=== PATIENT | male | born 1960 | race African-American/Black ===

== ENCOUNTER 2022-11-10 05:55 | Emergency (ER) | payer OTHER | END 2022-11-10 07:15 | disposition home or self-care (01) | LOC: CSHERS 05:55 | DX: J06.9 Acute upper respiratory infection, unspecified (principal); I10 Essential (primary) hypertension; Z79.899 Other long term (current) drug therapy | CPT/HCPCS: 99283 ==

== ENCOUNTER 2022-11-12 07:37 | Emergency (ER) | payer OTHER | END 2022-11-12 08:49 | disposition home or self-care (01) | LOC: CSHERS 07:37 | DX: R04.2 Hemoptysis (principal); I10 Essential (primary) hypertension; Z79.899 Other long term (current) drug therapy | CPT/HCPCS: 71045 ==

== ENCOUNTER 2023-04-10 08:42 | Emergency (ER) | payer OTHER ==
[2023-04-10 09:41] LABS: #Basophils 0.1 10x3/uL (0.0-0.2); #Monocytes 0.8 10x3/uL (0.0-1.1); %Basophils 0.8 % (0.0-2.0); %Eosinophils 0.3 % (0.0-6.0); %Lymphocytes 38.5 % (18.0-47.0); %Monocytes 12.1 % (0.0-10.0); %Neutrophils 48.1 % (40.0-75.0); Hematocrit 42.5 % (38.8-50.0); Mean Corpuscular HGB CONC 32.9 g/dL (32.0-36.0); Mean Corpuscular Hemoglobin 30.6 pg (27.0-33.0); Mean Platelet Volume 10.5 fl (7.4-10.4); Platelet Count 187 10x3/uL (150-450); RBC Distribution Width 13.4 % (11.5-14.5); Red Blood Cell (RBC) Count 4.57 10x6/uL (4.32-5.72); White Blood Cell (WBC) Count 6.3 10x3/uL (3.5-10.5)
[2023-04-10 09:57] LABS: ALT (SGPT) 26 U/L (8-55); AST (SGOT) 26 U/L (5-34); Albumin 4.2 g/dL (3.4-4.8); Alkaline Phosphatase 58 U/L (40-110); Anion Gap 13 mmol/L (10-20); BUN (Urea Nitrogen) 14 mg/dL (8.4-25.7); Bilirubin, Total 0.5 mg/dL (0.2-1.2); Calc. Creatinine Clearance 0 mL/min (70-130); Calcium 8.5 mg/dL (7.8-10.44); Carbon Dioxide 23 mmol/L (23-31); Chloride 105 mmol/L (98-107); Estimated GFR 56; Globulin 2.9 g/dL (2.4-3.5); Glucose 103 mg/dL (80-115); Potassium 4.1 mmol/L (3.5-5.1); Protein, Total 7.1 g/dL (5.8-8.1); Sodium 137 mmol/L (136-145)
[2023-04-10 10:01] LABS: Troponin I Less than 0.010 ng/mL (< 0.028)
[2023-04-10 10:58] LABS: SARS-CoV-2 NAA Rapid Test DETECTED (NotDetected)
== END 2023-04-10 11:20 | disposition home or self-care (01) ==
LOC: CSHERS 08:42
DX: U07.1 COVID-19 (principal); I10 Essential (primary) hypertension
CPT/HCPCS: 36415; 71045; 80053; 84484; 85025; 93005; 96360